=== PATIENT | male | born 1970 | race Caucasian/White ===

== ENCOUNTER 2016-07-03 07:00 | Emergency (ER) | payer OTHER ==
[2016-07-03 07:30] LABS: BASOPHILS 0.4 % (0-2); HEMATOCRIT 45.8 % (42.0-54.0); HEMOGLOBIN 15.3 g/dL (13.5-17.5); IMMATURE GRANULOCYTES 0.7 % (0-5); LYMPHOCYTES 30.8 % (15-50); MCH 30.4 pg (26.0-34.0); MCHC 33.4 g/dL (31.0-37.0); MCV 91.1 fL (80.0-100.0); MEAN PLATELET VOLUME 10.4 fL (7.4-10.4); MONOCYTES 8.6 % (2-11); NEUTROPHILS 58.5 % (40-80); PLATELET COUNT 277 10x3/uL (130-400); RBC 5.03 10x6/uL (4.20-6.10); RDW 12.9 % (11.5-14.5); WBC 10.1 10x3/uL (4.8-10.8)
[2016-07-03 07:42] LABS: ALBUMIN 3.6 g/dL (3.4-5.0); ALKALINE PHOSPHATASE 80 U/L (46-116); ALT (SGPT) 42 U/L (10-68); BILIRUBIN - TOTAL 0.35 mg/dL (0.2-1.3); CALC OSMOLALITY 279 mosm/kg (275-300); CALCIUM 8.7 mg/dL (8.5-10.1); CARBON DIOXIDE 26.5 mmol/L (21.0-32.0); CHLORIDE - SERUM 106 mmol/L (98-107); CREATININE - SERUM 0.8 mg/dL (0.6-1.3); GLUCOSE 125 mg/dL (74-106); POTASSIUM - SERUM 4.3 mmol/L (3.5-5.1); PROTEIN - SERUM 7.2 g/dL (6.4-8.2); SODIUM 140 mmol/L (136-145); UREA NITROGEN 12 mg/dL (7-18); eGFR NON AFRICAN AMERICAN > 90 mL/min (90-120)
[2016-07-03 07:54] LABS: CKMB 0.3 U/L (0.0-3.6); CREATINE KINASE 75 UL (21-232)
[2016-07-03 07:57] LABS: TROPONIN-I < 0.017 ng/mL (0.000-0.060)
--- NOTE | 2016-07-05 08:58 | CN ---
PATIENT NAME:BRODY PULLIAM MEDICAL RECORD: [id number] : 66 LOCATION:.ER ADMIT DATE: ACCOUNT: [id number] CONSULTING PHYSICIAN: ADALGISA RODRIGUEZ MD REFERRING PHYSICIAN: SHANTELLE LOPEZ DATE OF CONSULTATION: 07/03/2016 DIAGNOSES: 1. Chest pain. 2. Arm pain. 3. Family history of coronary artery disease. HISTORY OF PRESENT ILLNESS: Mr. Pulliam has no previous history of coronary artery disease. He has been having episodes of arm pain, now progressed to chest pain today. He has a very strong family history of coronary artery disease. He as well has episodes of anxiety. It was associated in the past 2 days with some episodes of anxiety. His EKG is normal. Troponin is normal. PHYSICAL EXAMINATION: GENERAL APPEARANCE: Well-nourished, well-developed, appears stated age. Level of distress, comfortable. PSYCHIATRIC: Mental status, alert, normal affect. Orientation, oriented to time, place and person. EYES: Lids and conjunctiva, noninjected. No discharge, no pallor. ENT: Lips, teeth, gums, normal dentition. Oropharynx, no cyanosis, no pallor. NECK: Carotid arteries, bilateral normal upstroke, no bruits, no thrills. JUGULAR VEINS: No jugular venous pressure or distention. CERVICAL LYMPH NODES: Nontender, nonenlarged. THYROID: Not enlarged. Nontender. No nodules. LUNGS: Respiratory effort, unlabored. CHEST: Normal curvature. No thoracic deformity. No chest wall tenderness. Percussion, resonant. Auscultation, clear. No wheezes, no rales, no rhonchi. CARDIOVASCULAR: Precordial exam, nondisplaced. No heaves or pericardial thrills. Rate and rhythm, regular. Heart sounds, normal S1, normal S2. No S3, no gallop, no rub. Systolic murmur, not heard. Diastolic murmur, not heard. EXTREMITIES: No cyanosis, no edema. Peripheral pulses, full and equal in all extremities, except as noted. No bruits appreciated. ABDOMEN: Soft, nondistended. Normal aorta. No bruit. Nontender. No masses. Liver, nontender, no hepatomegaly. Spleen, nontender, no splenomegaly. MUSCULOSKELETAL: No joint tenderness. No joint swelling. No erythema. NEUROLOGICAL: Normal gait, normal strength, normal tone. SKIN: Warm and dry. REVIEW OF SYSTEMS: The patient reports easy bruising but reports no swollen glands. The patient reports no fever, no night sweats, no significant weight gain, no significant weight loss. No significant exercise tolerance. The patient reports no dry eyes, no irritation, no vision change. Patient reports no difficulty hearing and no ear pain. Patient reports no frequent nose bleeds or nose and sinus problems. Patient reports on arm pain on exertion. No shortness of breath while lying down. No history of heart murmur. Patient reports no cough, no wheezing or coughing up blood. Patient reports no abdominal pain, no vomiting. Normal appetite. No diarrhea and not vomiting blood. No nausea and no constipation. Patient reports no incontinence. No difficulty urinating. No hematuria. No increased frequency. Patient reports no muscle aches. No weakness, no arthralgias, no back pain. No swelling of the CONSULT REPORT [id number] BRODY PULLIAM extremities. Patient reports no abnormal mole, no jaundice, no rashes. Reports no loss of consciousness. No weakness and no numbness. No seizures, dizziness, or headaches. The patient reports no depression, no sleep disturbance, feeling safe in a relationship and no alcohol abuse. Patient reports on fatigue. Reports no runny nose or sinus pressure. No itching, no hives, and no frequent sneezing. OVERALL IMPRESSION: Chest pain. He has multiple reasons for pain. This could possibly be musculoskeletal, could be possibly related to his anxiety, it could be anginal equivalent, but normal EKG, normal troponin and many atypical symptoms associated with the pain. It make me think that this is a low likelihood of cardiac. We will set him up for a stress test in the office. Further care depends upon findings of the stress test. TRANSINT:[id number] Voice Confirmation ID: [id number] DOCUMENT ID: [id number] ADALGISA RODRIGUEZ MD at 0858 CC: [id number] DICTATION DATE: 07/03/16912 LIVE GAMES DEALER: 07/03/16 1435 [facility]P ER 07/03/16 [place] [address]
== END 2016-07-03 09:38 | disposition home or self-care (01) ==
LOC: D.ER 07:00
PROVIDERS: Emergency Medicine
DX: M54.12 Radiculopathy, cervical region (principal); F17.200 Nicotine dependence, unspecified, uncomplicated

== ENCOUNTER 2018-08-27 13:16 | Emergency (ER) | payer OTHER ==
[~2018-08-27] VITALS: Ht 170.2 cm; Wt 100.5 kg
[2018-08-27 13:27] VITALS: Ht 170.2 cm; Wt 100.5 kg
[2018-08-27] MEDS ORDERED: TORADOL10 MG PO (16:10)
[2018-08-27] MEDS ORDERED: KEFLEX500 MG PO (16:10)
[2018-08-27 16:28] VITALS: BP 132/78
== END 2018-08-27 16:28 | disposition home or self-care (01) ==
LOC: D.ER 13:16
DX: S51.812A Laceration without foreign body of left forearm, initial encounter (principal); W26.8XXA Contact with other sharp object(s), not elsewhere classified, initial encounter; Y93.89 Activity, other specified; Y92.89 Other specified places as the place of occurrence of the external cause

== ENCOUNTER → 2019-09-01 14:57 | Outpatient (CLI) | payer OTHER ==
[2018-08-27 13:27] VITALS: BMI 34.7
[~2019-09-01 14:57] MED LIST: KEFLEX500 MG PO; TORADOL10 MG PO
== END | disposition home or self-care (01) ==
LOC: D.MRI 14:57
PROVIDERS: ATTEND Orthopaedic Surgery
DX: S46.292A Other injury of muscle, fascia and tendon of other parts of biceps, left arm, initial encounter (principal)

== ENCOUNTER 2019-09-07 08:29 | Day surgery (SDC) | payer OTHER ==
[~2019-09-07] VITALS: Ht 170.2 cm; Wt 99.8 kg
[~2019-09-07 08:29] MED LIST changes: +CHANTIX 1 MG TAB1 MG PO
[2019-09-07 09:25] VITALS: Ht 170.2 cm; Wt 99.8 kg
[2019-09-07] MEDS ORDERED: PERCOCET 5-3251 TAB PO (12:17)
--- NOTE | 2019-09-08 10:44 | OP ---
PATIENT NAME: BRODY CARVAJAL MEDICAL RECORD: [id number] :66 LOCATION:[facility] ADMISSION DATE: SURGEON: JEROME BOWDEN DO DATE OF OPERATION: 09/07/2019 PROCEDURE PERFORMED: Left distal biceps tendon repair. PREOPERATIVE DIAGNOSIS: Left distal biceps tendon rupture. POSTOPERATIVE DIAGNOSIS: Left distal biceps tendon rupture. INDICATIONS: Mr. Carvajal is a 49-year-old male who was trying to catch load of briks that fell off an eccentric load and popped his left bicep tendon. He had pain, this was on Friday. He was seen next . An MRI was done indicating the distal biceps tendon tear. I informed him that given the options we could fix it and he would be unable to use it for about 4-5 weeks, really no lifting up to 12 weeks, but he would lose 30% -40% of supination strength and some flexion. He wanted something done surgically. He is aware of the risks including infection, bleeding, damage to nerves, specifically the lateral brachial anterior cutaneous nerve and radial nerve of PIN. Continued pain, fracture of the radius and re-ruptured biceps tendon and he is aware of all that and he signed the consent. SURGEON: Jerome Bowden DO DESCRIPTION OF THE PROCEDURE: The patient was given a block by anesthesia in the preoperative area, taken to the operative suite, given 2 grams Ancef preoperatively. He was sedated and LMA was placed. The left upper extremity was then prepped and draped in sterile fashion. Time out was performed. Everyone was in agreement with the correct side, site, patient, and procedure. I then made a diagonal incision just medial to the mobile wad after exsanguinating the left upper extremity with an Esmarch and inflating the tourniquet to 250 mmHg, was up for 38 minutes. Incision was then made through the skin. Careful dissection was made down to the biceps tendon. I fished it out and whipstitched it and put the button on it, a Biomet ToggleLoc and then bluntly dissected out the radial tuberosity and under x-ray got the fixation point and put first a guide pin and a 4.5 drill through that and then a 6.0 reamer just through the near cortex. I then cinched down with elbow flexed, cinched down the biceps tendon and went down into the tunnel, holding that very well. He had good range of motion following the fixation and it was very strong. I then cut the loop and tied it down as to hold it better. I then put the tourniquet down, irrigated the area and put the tourniquet down, closed with a 3-0 Vicryl in inverted interrupted fashion and the [employer] surgical assisted living coordinator student closed the skin with 4-0 Monocryl in a running subcuticular fashion. It was then placed with Adaptic, 4 x 4s, ABD on the posterior elbow and wrapped with cast padding and put a 4 x 30 splint posteriorly and secured in place with a 4-inch Jeremy wrap. He was then awakened and taken to recovery in stable condition. BLOOD LOSS: Minimal. COMPLICATION: None. TRANSINT:[id number] Voice Confirmation ID: [id number] DOCUMENT ID: [id number] OPERATIVE REPORT [id number] BRODY CARVAJAL MICHAEL D, DO at 1044 CC: [id number] DICTATION DATE: 09/07/19 1326 SAT TUTOR: 09/07/19 2301 [facility] 09/07/19 [facility] [address] [place] [address]
== END 2019-09-07 15:15 | disposition home or self-care (01) ==
LOC: D.OPS 08:29 → D.PAN 10:30 → D.OPS 15:15 → D.PAN 15:45 → D.OPS 15:45
PROVIDERS: ATTEND Orthopaedic Surgery
DX: S46.212A Strain of muscle, fascia and tendon of other parts of biceps, left arm, initial encounter (principal); X58.XXXA Exposure to other specified factors, initial encounter; M25.522 Pain in left elbow